=== PATIENT | female | born 1995 | race Caucasian/White ===

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

== ENCOUNTER 2017-03-22 15:07 | Emergency (ER) | payer OTHER, MEDICAID ==
[2017-03-22 15:16] VITALS: BP 130/90
--- NOTE | 2017-03-22 15:35 | ED Physician Documentation ---
PD HPI LOWER EXT INJURY - Stated complaint Stated Complaint: LT ANKLE INJ - Chief complaint Chief Complaint: Ext Problem - History of Present Illness PD HPI LOW EXT INJURY LOCATION: Left, Ankle (inversion at work today. No other injuries. Can walk.) Review of Systems Constitutional: reports: Reviewed and negative Throat: reports: Reviewed and negative Cardiac: reports: Reviewed and negative PD PAST MEDICAL HISTORY - Past Medical History Cardiovascular: None Respiratory: None, Other Endocrine/Autoimmune: None GI: None : None HEENT: None Psych: None Musculoskeletal: None Derm: None - Past Surgical History Past Surgical History: No HEENT: Tonsil/Adenoidectomy - Present Medications Home Medications: Ambulatory Orders Medication Instructions Recorded Confirmed Bcp 03/22/17 Sertraline HCl [Zoloft] 0 mg PO DAILY 03/22/17 03/22/17 - Allergies Allergies/Adverse Reactions: Allergies Allergy/AdvReac Type Severity Reaction Status Date / Time No Known Drug Allergies Allergy Verified 10/06/16 12:18 - Social History Does the pt smoke?: No Smoking Status: Never smoker Does the pt drink ETOH?: No Does the pt have substance abuse?: No - Immunizations Immunizations are current?: Yes - POLST Patient has POLST: No PD ED PE NORMAL - Vitals Vital signs reviewed: Yes - General General: Alert and oriented X 3, No acute distress - Extremities Extremities: Other (Mild tenderness over the lateral malleolus and ATFL of the left ankle without proximal fibular or foot tenderness. No deformity or significant swelling.) - Neuro Neuro: Alert and oriented X 3, Normal speech - Psych Psych: Normal mood, Normal affect Results - Vitals Vitals: Vital Signs - 24 hr 03/22/17 15:15 Temperature 36.1 C L Heart Rate 99 Respiratory 18 Rate Blood Pressure 130/90 H O2 Saturation 100 Oxygen O2 Source Room air - Rads (name of study) 3v L ankle Radiology: EMP read contemporaneously (no frx) Departure - Departure Disposition: 01 Home, Self Care Clinical Impression: Left ankle sprain Qualifiers: Encounter type: initial encounter Involved ligament of ankle: anterior talofibular ligament Qualified Code(s): S93.492A - Sprain of other ligament of left ankle, initial encounter Condition: Good Record reviewed to determine appropriate education?: Yes Instructions: ED Sprain Ankle W X Ray Comments: Ibuprofen as needed for pain. Follow-up with your doctor in 1 week if not improved. Return if worse. Your blood pressure was elevated today on check into the emergency department. This does not mean that you have hypertension, it is a common phenomenon to come to the emergency department and have elevated blood pressure. I recommend that you see your primary care physician within the week to have it rechecked when you are feeling better. Forms: Activity restrictions Discharge Date/Time: 03/22/17 15:55
--- NOTE | 2017-03-22 15:46 | XRAY Preliminary Report ---
Exam: XR ANKLE 3 VIEW LT IMPRESSION: No fracture. [facility] SITE ID: [id number]
--- NOTE | 2017-03-22 15:46 | XRAY Report ---
EXAM: LEFT ANKLE RADIOGRAPHY EXAM DATE: 03/22/2017 03:31 PM. CLINICAL HISTORY: Injury. Swelling. COMPARISON: None. TECHNIQUE: 3 views. FINDINGS: Bones: Normal. No fractures or bone lesions. Joints: Normal. No effusion. No subluxations. The ankle mortise is normally aligned. Soft Tissues: There is lateral ankle soft tissue swelling. IMPRESSION: No fracture. [facility] Referring Provider Line: [phone] SITE ID: [id number]
== END 2017-03-22 15:55 | disposition home or self-care (01) ==
LOC: ED 15:07
DX: S93.492A Sprain of other ligament of left ankle, initial encounter (principal); X50.1XXA Overexertion from prolonged static or awkward postures, initial encounter; Y92.89 Other specified places as the place of occurrence of the external cause; Y99.0 Civilian activity done for income or pay; R03.0 Elevated blood-pressure reading, without diagnosis of hypertension
CPT/HCPCS: 99282; 99283

== ENCOUNTER 2017-07-10 09:33 | Outpatient (CLI) | payer MEDICAID | END 2017-07-10 09:34 | disposition home or self-care (01) | LOC: LAB.R 09:33 | PROVIDERS: ATTEND Registered Nurse | DX: N76.0 Acute vaginitis (principal) | CPT/HCPCS: 87491; 87591 ==

== ENCOUNTER 2017-09-10 10:20 | Emergency (ER) | payer MEDICAID ==
[2017-09-10] MEDS: ONDANSETRON ODT 4 MG TABLET TL STA (12:14)
[2017-09-10] MEDS: OXYMETAZOLINE NASAL SPRAY NAS STA (12:17)
[2017-09-10] MEDS: DEXAMETHASONE 10 MG/ML VIAL PO STA (12:17)
[2017-09-10 12:19] VITALS: BP 130/90
[2017-09-10] MEDS ORDERED: CHERRY SYRUP 10 ML UDC PO ONE (12:24)
--- NOTE | 2017-09-10 12:32 | ED Physician Documentation ---
History of Present Illness - Stated complaint Stated Complaint: THROAT TIGHT, DIZZY, EAR PX, NAUSEA, CONGESTED - Chief complaint Chief Complaint: General - Additonal information Additional information: hx from pt to ER with several concerns 1) new rx gabapentin for nerve pain and she feels dizzy and it is not helping the nerve pain 2) s/p tonsiellectomy (in the past) but exposed to strep and has swollen nodes and pain with swallowing and plugged ears and nausea LMP not but could be Review of Systems Constitutional: denies: Fever, Chills Ears: reports: Ear pain Throat: reports: Sore throat GI: reports: Nausea : denies: Now EGA Immunocompromised: denies: Immunocompromised PD PAST MEDICAL HISTORY - Past Medical History Past Medical History: Yes Cardiovascular: None Respiratory: None, Other Endocrine/Autoimmune: None GI: None : None HEENT: None Psych: None Musculoskeletal: Other Derm: None Other Past Medical History: Slipped disk. - Past Surgical History Past Surgical History: Yes HEENT: Tonsil/Adenoidectomy - Present Medications Home Medications: Ambulatory Orders Medication Instructions Recorded Confirmed FLUoxetine [PROzac] 09/10/17 Gabapentin 09/10/17 Ondansetron Odt [Zofran] 4 mg TL Q6H PRN #10 tablet 09/10/17 Oxymetazoline HCl [Afrin] 2 spray NS BID PRN #1 bottle 09/10/17 raNITIdine [Zantac] 150 mg PO BID #60 tablet 09/10/17 - Allergies Allergies/Adverse Reactions: Allergies Allergy/AdvReac Type Severity Reaction Status Date / Time No Known Drug Allergies Allergy Verified 09/10/17 10:29 - Social History Does the pt smoke?: No Smoking Status: Never smoker Does the pt drink ETOH?: No Does the pt have substance abuse?: No - Immunizations Immunizations are current?: Yes - POLST Patient has POLST: No PD ED PE NORMAL - Vitals Vital signs reviewed: Yes - General General: Alert and oriented X 3 - HEENT HEENT: PERRL, Ears normal, Moist mucous membranes. No: Pharynx benign (no tonsils, pharyngeal erythema and some PND) - Neck Neck: No: No adenopathy (anterior sup cervical adenopathy) - Cardiac Cardiac: RRR - Respiratory Respiratory: No respiratory distress, Clear bilaterally - Derm Derm: Normal color - Neuro Neuro: Alert and oriented X 3 Results - Vitals Vitals: Vital Signs - 24 hr 09/10/17 09/10/17 10:27 12:19 Temperature 36.5 C 36.7 C Heart Rate 92 90 Respiratory 20 16 Rate Blood Pressure 134/91 H 130/90 H O2 Saturation 97 99 Oxygen O2 Source Room air - Labs Labs: Laboratory Tests 09/10/17 09/10/17 12:06 12:06 Ur Specific [place] 1.025 Urine HCG, Qual NEGATIVE Group A Strep Rapid Negative PD MEDICAL DECISION MAKING - Sepsis Event Vital Signs: Vital Signs - 24 hr 09/10/17 09/10/17 10:27 12:19 Temperature 36.5 C 36.7 C Heart Rate 92 90 Respiratory 20 16 Rate Blood Pressure 134/91 H 130/90 H O2 Saturation 97 99 Oxygen O2 Source Room air Departure - Departure Disposition: 01 Home, Self Care Clinical Impression: Pharyngitis Qualifiers: Pharyngitis/tonsillitis etiology: unspecified etiology Qualified Code(s): J02.9 - Acute pharyngitis, unspecified Gastritis Qualifiers: Gastritis type: unspecified gastritis Chronicity: acute Gastritis bleeding: without bleeding Qualified Code(s): K29.00 - Acute gastritis without bleeding Condition: Good Instructions: ED PUD Vs Gastritis, ED Pharyngitis Viral Report Pending Follow-Up: Stacey Zhu MD [Primary Care Provider] - Prescriptions: Ondansetron Odt [Zofran] 4 mg TL Q6H PRN #10 tablet PRN Reason: Nausea / Vomiting Oxymetazoline HCl [Afrin] 2 spray NS BID PRN #1 bottle PRN Reason: nasal sinus ear congestion raNITIdine [Zantac] 150 mg PO BID #60 tablet Comments: The test was negative The strep test was negative. An official throat culture will also be run and you will be called if it is positive and antibiotics are needed. The dizziness could be a side effect of your new gabapentin - if you do not feel like the gabapentin is helping and it is causing side effects, I suggest you stop that medication. Taper off the medication - if possible cut the dose in half for a week, then take that half dose every other day for a week, then may stop The dose of steroids given in the ER will decrease the swelling in your throat and relieve the pressure in your ears - it will take several hours to start working You can also use afrin nose spray twice a day for three days. I prescribed zofran for your nausea and zantac for the stomach pain - you could have gastritis or even an ulcer due to your recent stress. Please follow up with your PMD for a recheck. And return if worse
[2017-09-10 12:40] LABS: HCG UR QUAL NEGATIVE
== END 2017-09-10 13:12 | disposition home or self-care (01) ==
LOC: ED 10:20
DX: J02.9 Acute pharyngitis, unspecified (principal); K29.00 Acute gastritis without bleeding; R42 Dizziness and giddiness
CPT/HCPCS: 81025; 87070; 87430; 99283; A9270; Q0162

== ENCOUNTER 2017-09-14 11:31 | Emergency (ER) | payer MEDICAID ==
[2017-09-14] MEDS ORDERED: LIDOCAINE VISCOUS 2% 15 ML UDC MM STA (13:18)
[2017-09-14] MEDS ORDERED: PHENobarb/HYOSCY/ATROPINE/SCOP 5 ML UDC PO STA (13:18)
[2017-09-14] MEDS ORDERED: MAG HYDROX/AL HYDROX/SIMETH 30 ML UDC PO STA (13:18)
--- NOTE | 2017-09-14 13:21 | ED Physician Documentation ---
History of Present Illness - Stated complaint Stated Complaint: DIFF BREATHING - Chief complaint Chief Complaint: Resp - History obtained from History obtained from: Patient - Additonal information Additional information: The patient is a 22-year-old female who presents with a constellation of symptoms, including shortness of breath and chest tightness with inspiration. She has had nausea with one episode of vomiting this morning. She complains of sore throat, intermittent low-grade fever, and generalized achiness. She denies cough or headache. She denies dysuria. She just finished her last menstrual period. She was seen in the emergency department here 4 days ago with similar symptoms. A strep screen at that time was negative and subsequent throat culture is also negative. She was diagnosed with viral pharyngitis and was given a dose of oral dexamethasone. In addition she was diagnosed with gastritis versus peptic ulcer disease, and was prescribed ranitidine and Zofran. There was some thought that her symptoms might be related to starting gabapentin a few days prior to the onset of her symptoms. She has discontinued gabapentin, but her symptoms have continued. She states her brother was recently diagnosed with mononucleosis and strep throat. Review of Systems Constitutional: reports: Fever (intermittent, low-grade) Ears: denies: Ear pain Nose: denies: Congestion Throat: reports: Sore throat Cardiac: reports: Chest pain / pressure ("tightness" with inspiration.). denies : Palpitations Respiratory: reports: Dyspnea. denies: Cough GI: reports: Nausea, Vomiting. denies: Abdominal Pain, Diarrhea : reports: LMP (less than one week ago.). denies: Dysuria Skin: denies: Rash Musculoskeletal: denies: Back pain Neurologic: denies: Headache PD PAST MEDICAL HISTORY - Past Medical History Cardiovascular: None Respiratory: None, Other Endocrine/Autoimmune: None GI: None : None HEENT: None Psych: None Musculoskeletal: Other Derm: None - Past Surgical History Past Surgical History: Yes HEENT: Tonsil/Adenoidectomy - Present Medications Home Medications: Ambulatory Orders Medication Instructions Recorded Confirmed FLUoxetine [PROzac] 09/10/17 Ondansetron Odt [Zofran] 4 mg TL Q6H PRN #10 tablet 09/10/17 raNITIdine [Zantac] 150 mg PO BID #60 tablet 09/10/17 raNITIdine [Zantac] 150 mg PO BID #30 tablet 09/14/17 - Allergies Allergies/Adverse Reactions: Allergies Allergy/AdvReac Type Severity Reaction Status Date / Time gabapentin AdvReac Edema Verified 09/14/17 11:39 - Social History Does the pt smoke?: No Smoking Status: Never smoker Does the pt drink ETOH?: No Does the pt have substance abuse?: No - Immunizations Immunizations are current?: Yes - POLST Patient has POLST: No PD ED PE NORMAL - Vitals Vital signs reviewed: Yes (normal) - General General: Alert and oriented X 3, Well developed/nourished, Other (Appears anxious.) - HEENT HEENT: Atraumatic, EOMI, Ears normal, Pharynx benign - Neck Neck: No adenopathy, No JVD - Cardiac Cardiac: RRR, No murmur - Respiratory Respiratory: No respiratory distress, Clear bilaterally - Abdomen Abdomen: Soft, Other (Mild epigastric tenderness, without rebound or guarding.) - Back Back: No CVA TTP - Derm Derm: No rash - Extremities Extremities: No edema, No calf tenderness / cord - Neuro Neuro: Alert and oriented X 3, No motor deficit, Normal speech Results - Vitals Vitals: Oxygen O2 Source Room air - Labs Labs: Laboratory Tests 09/14/17 09/14/17 09/14/17 13:44 13:44 13:44 WBC 8.9 RBC 4.79 Hgb 14.1 Hct 42.2 MCV 88.0 MCH 29.5 MCHC 33.5 RDW 13.4 Plt Count 236 MPV 9.0 Neut # (Auto) 7.7 H Lymph # (Auto) 0.9 L Howell # (Auto) 0.3 Eos # (Auto) 0.0 Baso # (Auto) 0.0 Absolute Nucleated RBC 0.00 Nucleated RBC % 0.0 Sodium 135 Potassium 3.8 Chloride 103 Carbon Dioxide 23 Anion Gap 9.0 BUN 8 Creatinine 0.6 Estimated GFR (MDRD) 127 Glucose 115 H Calcium 9.4 Total Bilirubin 1.7 H AST 14 ALT 13 Alkaline Phosphatase 77 Total Protein 7.9 Albumin 4.5 Globulin 3.4 Albumin/Globulin Ratio 1.3 Lipase 25 Infectious Howell Assay NEGATIVE - Rads (name of study) CXR Radiology: Prelim report reviewed, EMP read contemporaneously, See rad report ( Normal 2 view chest radiography.) PD MEDICAL DECISION MAKING - ED course Complexity details: reviewed old records, reviewed results, re-evaluated patient , considered differential, d/w patient, d/w family ED course: The patient's presentation is most consistent with gastroesophageal reflux disease versus gastritis. There is also a large anxiety component. CBC and chemistry panel are unremarkable. Chest x-ray reveals no radiographic abnormality. Monospot is negative. I doubt pulmonary embolus. Treatment in the emergency department included administration of GI cocktail. This improved her epigastric discomfort, but she continued to complain of nausea. An IV was established and she was administered normal saline 1 L IV and Phenergan 12.5 mg IV. Because of continued anxiety, lorazepam 0.5 mg is administered IV. Her symptoms significantly improved with the above treatment. She had no respiratory symptoms during her entire duration in the emergency department. Repeat examination reveals a benign abdomen. I discussed with her and her mother the diagnosis, symptomatic treatment and outpatient follow-up, as well as potentially worrisome signs or symptoms that should prompt reevaluation in the emergency department. She is being discharged with prescription for ranitidine. - Sepsis Event Vital Signs: Oxygen O2 Source Room air Departure - Departure Disposition: 01 Home, Self Care Clinical Impression: GERD (gastroesophageal reflux disease) Qualifiers: Esophagitis presence: esophagitis presence not specified Qualified Code(s): K21.9 - Gastro-esophageal reflux disease without esophagitis Condition: Stable Instructions: ED GERD Follow-Up: Stacey Zhu MD [Primary Care Provider] - Prescriptions: raNITIdine [Zantac] 150 mg PO BID #30 tablet Comments: Drink plenty of fluids. Take ranitidine twice daily as prescribed. He can use Tylenol if needed for fever or discomfort. Follow up with your primary physician within 1-2 weeks. Call to schedule an appointment. Return to the emergency department if you develop increasing pain, increasing difficulty breathing, or otherwise worsening symptoms. Discharge Date/Time: 09/14/17 15:45
[2017-09-14] MEDS ORDERED: PROMETHAZINE INJ 12.5 MG in SODIUM CHLORIDE 0.9% 50 ML IV STA (13:40)
[2017-09-14] MEDS ORDERED: SODIUM CHLORIDE 0.9% 1,000 ML IV ONE (13:40)
[2017-09-14 13:50] LABS: BASOPHILS % (AUTO) 0.2 %; EOSINOPHILS % (AUTO) 0.3 %; HGB - HEMOGLOBIN 14.1 g/dL (12.0-16.0); LYMPHOCYTES # (AUTO) 0.9 10^3/uL (1.5-3.5); LYMPHOCYTES % (AUTO) 10.1 %; MEAN CORPUSCULAR HEMOGLOBIN 29.5 pg (27.0-31.0); MEAN CORPUSCULAR HGB CONC 33.5 g/dL (32.0-36.0); MONOCYTES # (AUTO) 0.3 10^3/uL (0.0-1.0); MONOCYTES % (AUTO) 2.8 %; NEUTROPHILS # (AUTO) 7.7 10^3/uL (1.5-6.6); NEUTROPHILS % (AUTO) 86.6 %; PLT - PLATELET COUNT 236 10^3/uL (130-450); RED BLOOD COUNT 4.79 10^6/uL (4.20-5.40); RED CELL DISTRIBUTION WIDTH 13.4 % (12.0-15.0); WHITE BLOOD COUNT 8.9 x10^3/uL (4.8-10.8)
[2017-09-14] MEDS ORDERED: LORazepam 2 MG/ML VIAL IVP STA (13:58)
[2017-09-14 14:11] LABS: ALBUMIN 4.5 g/dL (3.2-5.5); ALBUMIN/GLOBULIN RATIO 1.3 (1.0-2.2); BILIRUBIN,TOTAL 1.7 mg/dL (0.2-1.0); CALCIUM 9.4 mg/dL (8.5-10.3); CREATININE 0.6 mg/dL (0.4-1.0); TOTAL PROTEIN 7.9 g/dL (6.7-8.2)
--- NOTE | 2017-09-14 15:13 | XRAY Report ---
Procedure Date: 09/14/2017 Accession Number: [id number] / [id number] Procedure: XR - Chest 2 View X-Ray CPT Code: 30267 FULL RESULT: EXAM: CHEST RADIOGRAPHY EXAM DATE: 09/14/2017 02:54 PM. CLINICAL HISTORY: Dyspnea and wheezing for 3 days. COMPARISON: None. TECHNIQUE: 2 views. FINDINGS: Lungs/Pleura: No focal opacities evident. No pleural effusion. No pneumothorax. Normal volumes. Mediastinum: Heart and mediastinal contours are unremarkable. Other: None. IMPRESSION: Normal 2-view chest radiography. [facility]
[2017-09-14 15:47] VITALS: BP 119/64
== END 2017-09-14 15:45 | disposition home or self-care (01) ==
LOC: ED 11:31
DX: K21.9 Gastro-esophageal reflux disease without esophagitis (principal)
CPT/HCPCS: 36415; 71046; 80053; 83690; 85025; 86308; 96361; 96365; 96375; 99283; A9270; J2060; J7040

== ENCOUNTER 2018-03-04 08:00 | Outpatient (CLI) | payer MEDICAID ==
[2018-03-05 13:21] LABS: HEPATITIS C ANTIBODY NON-REACTIVE (NON-REACTIVE)
[2018-03-05 13:37] LABS: HIV AG/AB 4TH GEN NON-REACTIVE (NON-REACTIVE)
[2018-03-06 12:25] LABS: HSV 1 IGG TYPE SPECIFIC AB <0.90 index; HSV 2 IGG TYPE SPECIFIC AB 1.41 index
== END 2018-03-04 23:59 | disposition home or self-care (01) ==
LOC: LAB.N 08:00
PROVIDERS: ATTEND Registered Nurse
DX: Z11.3 Encounter for screening for infections with a predominantly sexual mode of transmission (principal)
CPT/HCPCS: 36415; 81599; 86592; 86695; 86696; 86803; 87389

== ENCOUNTER 2018-06-27 10:41 | Outpatient (CLI) | payer MEDICAID | END 2018-06-27 10:42 | disposition critical access hospital (66) | LOC: EMS 10:41 | PROVIDERS: ATTEND Surgery | DX: R55 Syncope and collapse (principal); S09.90XA Unspecified injury of head, initial encounter; S01.511A Laceration without foreign body of lip, initial encounter; M25.531 Pain in right wrist; W18.39XA Other fall on same level, initial encounter; Y92.59 Other trade areas as the place of occurrence of the external cause | CPT/HCPCS: A0425; A0427; A0999 ==

== ENCOUNTER 2018-06-27 11:02 | Emergency (ER) | payer MEDICAID ==
[2018-06-27 11:52] LABS: BILIRUBIN,URINE NEGATIVE (NEGATIVE); GLUCOSE, URINE (UA) NEGATIVE (NEGATIVE); KETONES,URINE (UA) NEGATIVE (NEGATIVE); LEUKOCYTE ESTERASE, URINE NEGATIVE (NEGATIVE); NITRITE,URINE NEGATIVE (NEGATIVE); OCCULT BLOOD,URINE NEGATIVE (NEGATIVE); PH,URINE 8.5 PH (5.0-7.5); PROTEIN,URINE NEGATIVE (NEGATIVE); UROBILINOGEN,URINE 0.2 (NORMAL) E.U./dL (NORMAL)
[2018-06-27 12:00] LABS: BASOPHILS % (AUTO) 0.2 %; EOSINOPHILS # (AUTO) 0.1 10^3/uL (0.0-0.7); EOSINOPHILS % (AUTO) 1.4 %; HGB - HEMOGLOBIN 13.1 g/dL (12.0-16.0); LYMPHOCYTES # (AUTO) 1.1 10^3/uL (1.5-3.5); MEAN CORPUSCULAR HEMOGLOBIN 29.1 pg (27.0-31.0); MEAN CORPUSCULAR HGB CONC 33.1 g/dL (32.0-36.0); MEAN CORPUSCULAR VOLUME 87.9 fL (81.0-99.0); MEAN PLATELET VOLUME 9.5 fL (7.9-10.8); MONOCYTES # (AUTO) 0.4 10^3/uL (0.0-1.0); MONOCYTES % (AUTO) 5.1 %; NEUTROPHILS # (AUTO) 6.1 10^3/uL (1.5-6.6); NEUTROPHILS % (AUTO) 79.3 %; PLT - PLATELET COUNT 209 10^3/uL (130-450); RED BLOOD COUNT 4.51 10^6/uL (4.20-5.40); RED CELL DISTRIBUTION WIDTH 13.7 % (12.0-15.0); WHITE BLOOD COUNT 7.6 x10^3/uL (4.8-10.8)
[2018-06-27 12:05] LABS: CLARITY,URINE CLEAR (CLEAR); HCG UR QUAL NEGATIVE
[2018-06-27 12:15] LABS: ALBUMIN/GLOBULIN RATIO 1.5 (1.0-2.2); BILIRUBIN,TOTAL 0.9 mg/dL (0.2-1.0); CALCIUM 9.1 mg/dL (8.5-10.3); CREATININE 0.5 mg/dL (0.4-1.0); TOTAL PROTEIN 6.7 g/dL (6.7-8.2)
[2018-06-27] MEDS ORDERED: ACETAMINOPHEN 325 MG TABLET PO STA (13:50)
--- NOTE | 2018-06-27 13:52 | ED Physician Documentation ---
History of Present Illness - Stated complaint Stated Complaint: syncopal episode/ABD PX - Chief complaint Chief Complaint: General - History obtained from History obtained from: Patient, Family - History of Present Illness Timing: Today Pain level max: 6 Pain level now: 5 - Additonal information Additional information: 23 year old female states that she was feeling, hunger pains at work, drank soda which made her stomach hurt worse, she felt lightheaded and dizzy, then passed out and awoke on the floor. Struck her head on something, she is unsure what. Now has a headache. No nausea or vomiting. No neck or back pain. Denies any . Has not passed out before. No changes to her medications. No re cent travel. No chest pain or shortness of breath. Review of Systems Constitutional: denies: Fever, Chills Ears: denies: Ear pain Nose: denies: Rhinorrhea / runny nose, Congestion Respiratory: denies: Dyspnea GI: denies: Nausea, Vomiting, Diarrhea Skin: denies: Rash Musculoskeletal: denies: Neck pain, Back pain Neurologic: denies: Headache PD PAST MEDICAL HISTORY - Past Medical History Past Medical History: Yes Cardiovascular: None Respiratory: None, Other Endocrine/Autoimmune: None GI: None : None HEENT: None Psych: None Musculoskeletal: Other Derm: None - Past Surgical History Past Surgical History: Yes HEENT: Tonsil/Adenoidectomy - Present Medications Home Medications: Ambulatory Orders Medication Instructions Recorded Confirmed FLUoxetine [PROzac] 09/10/17 Ondansetron Odt [Zofran] 4 mg TL Q6H PRN #10 tablet 09/10/17 raNITIdine [Zantac] 150 mg PO BID #60 tablet 09/10/17 raNITIdine [Zantac] 150 mg PO BID #30 tablet 09/14/17 Omeprazole 20 mg PO DAILY #30 tablet. 06/27/18 - Allergies Allergies/Adverse Reactions: Allergies Allergy/AdvReac Type Severity Reaction Status Date / Time gabapentin AdvReac Edema Verified 06/27/18 11:09 - Social History Does the pt smoke?: No Smoking Status: Former smoker Does the pt drink ETOH?: Yes Does the pt have substance abuse?: No - Immunizations Immunizations are current?: Yes - POLST Patient has POLST: No PD ED PE NORMAL - Vitals Vital signs reviewed: Yes - General General: Alert and oriented X 3, No acute distress, Well developed/nourished - HEENT HEENT: PERRL, EOMI, Moist mucous membranes, Pharynx benign, Other (Small forehead contusion. No palpable skull fractures.) - Neck Neck: Supple, no meningeal sign, No bony TTP - Cardiac Cardiac: RRR, Strong equal pulses - Respiratory Respiratory: No respiratory distress, Clear bilaterally - Abdomen Abdomen: Soft, Non tender, Non distended - Back Back: No spinal TTP - Derm Derm: Warm and dry - Extremities Extremities: No deformity, No tenderness to palpate, Normal ROM s pain - Neuro Neuro: Alert and oriented X 3, porter head 2-12 intact, No motor deficit, No sensory deficit, Normal speech Eye Opening: Spontaneous Motor: Obeys Commands Verbal: Oriented GCS Score: 15 - Psych Psych: Normal mood, Normal affect Results - Vitals Vitals: Vital Signs - 24 hr 06/27/18 06/27/18 06/27/18 11:09 12:27 14:50 Temperature 36.0 C L Heart Rate 88 73 83 Respiratory 14 14 19 Rate Blood Pressure 115/87 H 123/69 123/77 O2 Saturation 99 97 99 Oxygen O2 Source Room air - EKG (time done) 1323 Rate: Rate (enter#) (79) Rhythm: NSR [place]ane: Normal Intervals: Normal MO QRS: Normal Ischemia: Normal ST segments - Labs Labs: Laboratory Tests 06/27/18 06/27/18 06/27/18 11:14 11:55 11:55 WBC 7.6 RBC 4.51 Hgb 13.1 Hct 39.6 MCV 87.9 MCH 29.1 MCHC 33.1 RDW 13.7 Plt Count 209 MPV 9.5 Neut # (Auto) 6.1 Lymph # (Auto) 1.1 L [place] # (Auto) 0.4 Eos # (Auto) 0.1 Baso # (Auto) 0.0 Absolute Nucleated RBC 0.00 Nucleated RBC % 0.0 Sodium 141 Potassium 3.8 Chloride 103 Carbon Dioxide 24 Anion Gap 14.0 H BUN 8 Creatinine 0.5 Estimated GFR (MDRD) 156 Glucose 103 H Calcium 9.1 Total Bilirubin 0.9 AST 22 ALT 15 Alkaline Phosphatase 63 Total Protein 6.7 Albumin 4.0 Globulin 2.7 Albumin/Globulin Ratio 1.5 Lipase 26 Urine Color YELLOW Urine Clarity CLEAR Urine pH 8.5 H Ur Specific [place] 1.010 Urine Protein NEGATIVE Urine Glucose (UA) NEGATIVE Urine Ketones NEGATIVE Urine Occult Blood NEGATIVE Urine Nitrite NEGATIVE Urine Bilirubin NEGATIVE Urine Urobilinogen 0.2 (NORMAL) Ur Leukocyte Esterase NEGATIVE Ur Microscopic Review NOT INDICATED Urine Culture Comments NOT INDICATED Urine HCG, Qual NEGATIVE - Rads (name of study) Head CT Radiology: Prelim report reviewed, EMP read contemporaneously, See rad report (Mild right frontal scalp soft tissue contusion. No acute or focal intracranial abnormality seen. ) PD MEDICAL DECISION MAKING - ED course Complexity details: reviewed results, re-evaluated patient, considered differential, d/w patient ED course: 23-year-old female with a history of gastritis. Appears to have had a vasovagal syncopal episode today. No arrhythmias on telemetry. No acute lab abnormaliti es. Given IV fluids. Head CT is negative. Will add a PPI to her home regimen. We will follow-up with her doctor for further care. Patient and family counseled regarding signs and symptoms for which I believe and urgent re- evaluation would be necessary. Patient with good understanding of and agreement to plan and is comfortable going home at this time This document was made in part using voice recognition software. While efforts are made to proofread this document, sound alike and grammatical errors may occur. Departure - Departure Disposition: 01 Home, Self Care Clinical Impression: Vasovagal syncope Gastritis Qualifiers: Gastritis type: unspecified gastritis Chronicity: acute Gastritis bleeding: without bleeding Qualified Code(s): K29.00 - Acute gastritis without bleeding Head injury Qualifiers: Encounter type: initial encounter Qualified Code(s): S09.90XA - Unspecified injury of head, initial encounter Condition: Good Instructions: ED Head Injury Closed, ED Syncope Vasovagal, ED PUD Vs Gastritis Follow-Up: Stacey Zhu MD [Primary Care Provider] - Within 1 week Prescriptions: Omeprazole 20 mg PO DAILY #30 tablet. Comments: You should eat a bland diet, avoiding fried and spicy foods. Avoid caffeine and alcohol as well. Also avoid things such as Motrin and Aleve. Tylenol is okay. Drink plenty of fluids, especially water. Return if you worsen. Forms: Activity restrictions Discharge Date/Time: 06/27/18 15:12
[2018-06-27] MEDS ORDERED: SODIUM CHLORIDE 0.9% 1,000 ML IV ONE (13:55)
[2018-06-27 14:51] VITALS: BP 123/77
--- NOTE | 2018-06-27 15:20 | CT Report ---
Reason: syncope, head vs unknown object Procedure Date: 06/27/2018 Accession Number: [id number] / [id number] Procedure: CT - HEAD WO CPT Code: FULL RESULT: EXAM: CT HEAD EXAM DATE: 06/27/2018 02:29 PM. CLINICAL HISTORY: Syncope, head vs unknown object. Fell, hit head. COMPARISON: None. TECHNIQUE: Multiaxial CT images were obtained from the foramen magnum to the vertex. Reformats: Sagittal and coronal. IV contrast: None. In accordance with CT protocol optimization, one or more of the following dose reduction techniques were utilized for this exam: automated exposure control, adjustment of mA and/or KV based on patient size, or use of iterative reconstructive technique. FINDINGS: Parenchyma: No mass-effect or midline shift. No evidence for edema. No intracranial hemorrhage. Extraaxial Spaces: Normal for age. No subdural or epidural collections identified. Ventricles: Normal in size and position. Sinuses and Orbits: Imaged paranasal sinuses, orbits, and mastoids show no significant abnormality. Bones: No evidence of fracture or calvarial defect. Other: Mild right frontal scalp soft tissue contusion. IMPRESSION: Mild right frontal scalp soft tissue contusion. No acute or focal intracranial abnormality seen. RADIA
== END 2018-06-27 15:12 | disposition home or self-care (01) ==
LOC: EDUNIT# → ED 11:02
DX: R55 Syncope and collapse (principal); K29.00 Acute gastritis without bleeding; S00.83XA Contusion of other part of head, initial encounter; W22.01XA Walked into wall, initial encounter; Y92.89 Other specified places as the place of occurrence of the external cause; Y99.0 Civilian activity done for income or pay; Z87.891 Personal history of nicotine dependence
CPT/HCPCS: 36415; 70450; 80053; 81003; 81025; 83690; 85025; 93005; 96360; 99284; A9270; 81001; 87086

== ENCOUNTER 2019-03-05 15:34 | Emergency (ER) | payer MEDICAID ==
[2019-03-05 15:55] LABS: RAPID STREP SCREEN Negative (Negative)
--- NOTE | 2019-03-05 16:45 | ED Physician Documentation ---
PD HPI URI - Stated complaint Stated Complaint: SORE THROAT - Chief complaint Chief Complaint: Heent - History obtained from History obtained from: Patient - History of Present Illness Timing - onset: Today Timing duration: Days (1) Timing details: Abrupt onset, Still present Associated symptoms: Sore throat. No: Fever, Swollen nodes Contributing factors: Sick contact (friend with strep and she is concerned she has it as well.) Similar symptoms before: Has not had sx before Review of Systems Constitutional: denies: Fever, Chills, Myalgias Ears: denies: Ear pain Nose: reports: Congestion. denies: Rhinorrhea / runny nose Throat: reports: Sore throat Respiratory: denies: Cough PD PAST MEDICAL HISTORY - Past Medical History Cardiovascular: None Respiratory: None, Other Endocrine/Autoimmune: None GI: None : None HEENT: None Psych: None Musculoskeletal: Other Derm: None - Past Surgical History Past Surgical History: Yes HEENT: Tonsil/Adenoidectomy - Present Medications Home Medications: Ambulatory Orders Medication Instructions Recorded Confirmed FLUoxetine [PROzac] 09/10/17 Ondansetron Odt [Zofran] 4 mg TL Q6H PRN #10 tablet 09/10/17 raNITIdine [Zantac] 150 mg PO BID #60 tablet 09/10/17 raNITIdine [Zantac] 150 mg PO BID #30 tablet 09/14/17 Omeprazole 20 mg PO DAILY #30 tablet. 06/27/18 - Allergies Allergies/Adverse Reactions: Allergies Allergy/AdvReac Type Severity Reaction Status Date / Time gabapentin AdvReac Edema Verified 06/27/18 11:09 - Social History Does the pt smoke?: No Smoking Status: Former smoker Does the pt drink ETOH?: Yes Does the pt have substance abuse?: No - Immunizations Immunizations are current?: Yes - POLST Patient has POLST: No PD ED PE NORMAL - Vitals Vital signs reviewed: Yes - General General: Alert and oriented X 3, No acute distress, Well developed/nourished - HEENT HEENT: Ears normal, Moist mucous membranes, Pharynx benign - Neck Neck: Supple, no meningeal sign, No adenopathy - Cardiac Cardiac: RRR, No murmur - Respiratory Respiratory: Clear bilaterally Results - Vitals Vitals: Oxygen O2 Source Room air - Labs Labs: Microbiology 03/05/19 15:42 Group A Strep Throat Culture - Preliminary Throat CULTURE IN PROGRESS. RESULTS TO FOLLOW. Laboratory Tests 03/05/19 15:42 Group A Strep Rapid Negative PD MEDICAL DECISION MAKING - ED course Complexity details: reviewed results, considered differential, d/w patient Departure - Departure Disposition: 01 Home, Self Care Clinical Impression: Acute pharyngitis Qualifiers: Pharyngitis/tonsillitis etiology: unspecified etiology Qualified Code(s): J02.9 - Acute pharyngitis, unspecified Condition: Stable Record reviewed to determine appropriate education?: Yes Instructions: ED Pharyngitis Viral Report Pending Follow-Up: Stacey Zhu MD [Primary Care Provider] - Comments: The rapid strep test is negative. Does not look like strep clinically. At this point we will presume a viral infection. Stay well-hydrated. Tylenol or ibuprofen or both if needed for pains. Recheck if it worsens significantly over the next few days, in particular staying isolated to the throat with fevers or swollen glands or exudate. We will do a culture on the throat and call you in a couple of days if it shows any bacterial growth. Discharge Date/Time: 03/05/19 17:07
[2019-03-05] MEDS ORDERED: ACETAMINOPHEN 325 MG TABLET PO STA (16:56)
[2019-03-05] MEDS ORDERED: DEXAMETHASONE 10 MG/ML VIAL PO STA (16:56)
[2019-03-05] MEDS ORDERED: CHERRY SYRUP 10 ML UDC PO ONE (16:56)
[2019-03-05 17:08] VITALS: BP 126/74
== END 2019-03-05 17:07 | disposition home or self-care (01) ==
LOC: ED 15:34
DX: J02.9 Acute pharyngitis, unspecified (principal); Z87.891 Personal history of nicotine dependence
CPT/HCPCS: 87070; 87430; 99283; A9270

== ENCOUNTER 2021-02-17 20:42 | Outpatient (CLI) | payer MEDICAID | END 2021-02-17 20:43 | disposition critical access hospital (66) | LOC: EMS 20:42 | DX: R56.9 Unspecified convulsions (principal) | CPT/HCPCS: A0425; A0427; A0999 ==

== ENCOUNTER 2021-02-17 21:08 | Emergency (ER) | payer MEDICAID ==
--- NOTE | 2021-02-17 21:04 | ED Physician Documentation ---
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 No: Fell Associated symptoms: Headache (mild and generalized), Nausea / vomiting (mild nausea, given 4mg Zofran by EMS en route). No: Dyspnea History of seizures: No: Known seizure disorder, Prior TBI Contributing factors: No: Changed meds, Head injury, EtOH withdrawal, Fever Similar symptoms before: Has not had sx before Recently seen: Not recently seen - Additional information Additional information: Patient is amnestic for event but she recalls situation leading to the event. She says she has been feeling malaise all day with generalized weakness. She took a shower tonight and felt lightheaded and dizzy. She got dressed, went into a room where her was eating and, as she handed him some sauce for his food, she became diaphoretic, had rapid palpitations, and then next remembers waking up on the ground with her s.o. above her calling 911. Patient estimates she was unconscious for a few minutes. EMS says s.o. helped patient to ground thus no fall or witnessed/obvious injury. EMS says s.o. describes a few seconds of patient's limbs being drawn towards center of body and a few minutes of confusion upon waking up , but back to baseline mental status within a few minutes. Patient denies h/o similar event. Denies heavy/regular alcohol use. She has had one dose of COVID vaccine (of two); she has two children at home who recently tested positive for COVID-19. Review of Systems Constitutional: reports: Fatigue. denies: Fever, Chills, Myalgias, Sweats Eyes: reports: Reviewed and negative Cardiac: reports: Reviewed and negative Respiratory: reports: Reviewed and negative GI: reports: Nausea (resolved en route with IV zofran given by medics) PD PAST MEDICAL HISTORY - Past Medical History Past Medical History: Yes Psych: Depression - Present Medications Home Medications: Ambulatory Orders Medication Instructions Recorded Confirmed FLUoxetine [PROzac] 09/10/17 Ondansetron Odt [Zofran] 4 mg TL Q6H PRN #10 tablet 09/10/17 raNITIdine [Zantac] 150 mg PO BID #60 tablet 09/10/17 raNITIdine [Zantac] 150 mg PO BID #30 tablet 09/14/17 Omeprazole 20 mg PO DAILY #30 tablet. 06/27/18 - Allergies Allergies/Adverse Reactions: Allergies Allergy/AdvReac Type Severity Reaction Status Date / Time gabapentin AdvReac Edema Verified 06/27/18 11:09 PD ED PE NORMAL - Vitals Vital signs reviewed: Yes - General General: Alert and oriented X 3, No acute distress, Well developed/nourished - HEENT HEENT: Atraumatic, PERRL, EOMI, Moist mucous membranes, Other (no tongue bite/echymosis) - Neck Neck: Supple, no meningeal sign, No bony TTP - Cardiac Cardiac: RRR, No murmur - Respiratory Respiratory: No respiratory distress, Clear bilaterally - Abdomen Abdomen: Soft, Non tender - Derm Derm: Normal color, Warm and dry - Neuro Neuro: Alert and oriented X 3, wax room supervisor 2-12 intact, No motor deficit, No sensory deficit, Normal speech Eye Opening: Spontaneous Motor: Obeys Commands Verbal: Oriented GCS Score: 15 Results - Vitals Vitals: Vital Signs - 24 hr 02/17/21 02/17/21 21:12 23:13 Temperature 36.9 C 36.9 C Heart Rate 77 77 Respiratory 15 15 Rate Blood Pressure 132/72 H 132/72 H O2 Saturation 99 99 Oxygen O2 Source Room air - Labs Labs: Laboratory Tests 02/17/21 02/17/21 02/17/21 21:25 22:00 22:00 WBC 8.9 RBC 4.28 Hgb 12.0 Hct 37.2 MCV 86.9 MCH 28.0 MCHC 32.3 RDW 13.3 Plt Count 203 MPV 11.4 H Neut # (Auto) 6.9 H Lymph # (Auto) 1.4 L [place] # (Auto) 0.4 Eos # (Auto) 0.1 Baso # (Auto) 0.0 Absolute Nucleated RBC 0.00 Nucleated RBC % 0.0 Sodium 137 Potassium 3.5 Chloride 104 Carbon Dioxide 23 Anion Gap 10.0 BUN 10 Creatinine 0.6 Estimated GFR (MDRD) 124 Glucose 114 H Calcium 8.0 L Total Bilirubin 0.5 AST 19 ALT 13 Alkaline Phosphatase 70 Total Protein 6.7 Albumin 3.9 Globulin 2.8 Albumin/Globulin Ratio 1.4 Lipase 34 Nasal Adenovirus (PCR) NOT DETECTED Nasal B. parapertussis DNA (PCR) NOT DETECTED Nasal Coronavir 229E PCR NOT DETECTED Nasal Coronavir HKU1 PCR NOT DETECTED Nasal Coronavir NL63 PCR NOT DETECTED Nasal Coronavir OC43 PCR NOT DETECTED Nasal Enterovir/Rhinovir PCR NOT DETECTED Nasal Influenza B PCR NOT DETECTED Nasal Influenza A PCR NOT DETECTED Nasal Parainfluen 1 PCR NOT DETECTED Nasal Parainfluen 2 PCR NOT DETECTED Nasal Parainfluen 3 PCR NOT DETECTED Nasal Parainfluen 4 PCR NOT DETECTED Nasal RSV (PCR) NOT DETECTED Nasal B.pertussis DNA PCR NOT DETECTED Nasal C.pneumoniae (PCR) NOT DETECTED Franco Human Metapneumo PCR NOT DETECTED Nasal M.pneumoniae (PCR) NOT DETECTED Nasal SARS-CoV-2 (PCR) DETECTED A - Rads (name of study) CTH Radiology: Prelim report reviewed, See rad report PD MEDICAL DECISION MAKING - ED course Complexity details: reviewed results, re-evaluated patient, considered differential, d/w patient ED course: presents after syncopal episode. There was reportedly possible seizure-like activity, although the description does not include rhythmic, coordinated jerking motions (description was arms emigdio inward towards midline), and post- episode confusion was limited to a few minutes which would be unusually brief for a post-ictal phase. I suspect seizure-like activity from low-flow state due to syncope, with the syncope most likely being multifactorial (not feeling well recently with decreased PO intake, and just got out of shower and suddenly felt worse; she describes a prodrome of diaphoresis and lightheadedness with palpitations). she is given one liter NS IV and has reassuring blood tests. She is found to be COVID-19 positive although she has no respiratory complaints nor findings. CTH performed due to consideration that seizure is still on differential diagnosis; the CTH does not demonstrate acute/concerning findings. Results reviewed with patient. She is comfortable with discharge home. I instructed her to follow up with PMD for revaluation and consideration of f urther testing Departure - Departure Disposition: 01 Home, Self Care Clinical Impression: COVID-19 Syncope Qualifiers: Syncope type: unspecified Qualified Code(s): R55 - Syncope and collapse Condition: Good Instructions: ED Fainting Unkn Cause Comments: You have tested positive for COVID-19. For the latest information regarding isolation (techniques and length of isolation) and other information related to COVID-19, please refer to the CDC website for the most up-to-date information. https://www.cdc.gov/coronavirus/2019-ncov/index.html The [facility] website is another resource for information regarding COVID-19 I do not think you had a seizure tonight, but, as we discussed, you should follow up with your primary care provider for reevaluation. Discharge Date/Time: 02/17/21 23:46
[2021-02-17 21:17] VITALS: BP 132/72
[2021-02-17] MEDS ORDERED: SODIUM CHLORIDE 0.9% 1,000 ML IV STA (21:20)
[2021-02-17] MEDS ORDERED: ACETAMINOPHEN 325 MG TABLET PO STA (21:29)
--- NOTE | 2021-02-17 21:58 | CT Report ---
PROCEDURE: HEAD WO INDICATIONS: syncope, possible new-onset seizure TECHNIQUE: Noncontrast 4.5 mm thick angled axial sections acquired from the foramen magnum to the vertex. For r adiation dose reduction, the following was used: automated exposure control, adjustment of mA and/or kV according to patient size. COMPARISON: None. FINDINGS: Image quality: Excellent. CSF spaces: Basal cisterns are patent. No extra-axial fluid collections. Ventricles are normal in size and shape. Brain: No midline shift. No intracranial masses or hemorrhage. Alvarez-white matter interface is norm al. Skull and face: Calvarium and visualized facial bones are intact, without suspicious lesions. Sinuses: Visualized sinuses and mastoids are clear. IMPRESSION: No acute intracranial abnormality. Reviewed by: Andrea Nichols MD on 02/17/2021 9:57 PM PST Approved by: Andrea Nichols MD on 02/17/2021 9:57 PM PST Station ID: [id number]
[2021-02-17 22:04] LABS: BASOPHILS % (AUTO) 0.2 %; EOSINOPHILS # (AUTO) 0.1 10^3/uL (0.0-0.7); EOSINOPHILS % (AUTO) 1.4 %; HCT - HEMATOCRIT 37.2 % (37.0-47.0); LYMPHOCYTES # (AUTO) 1.4 10^3/uL (1.5-3.5); LYMPHOCYTES % (AUTO) 15.9 %; MEAN CORPUSCULAR HGB CONC 32.3 g/dL (32.0-36.0); MEAN CORPUSCULAR VOLUME 86.9 fL (81.0-99.0); MEAN PLATELET VOLUME 11.4 fL (7.9-10.8); MONOCYTES # (AUTO) 0.4 10^3/uL (0.0-1.0); MONOCYTES % (AUTO) 4.1 %; NEUTROPHILS # (AUTO) 6.9 10^3/uL (1.5-6.6); NEUTROPHILS % (AUTO) 78.2 %; PLT - PLATELET COUNT 203 10^3/uL (130-450); RED BLOOD COUNT 4.28 10^6/uL (4.20-5.40); RED CELL DISTRIBUTION WIDTH 13.3 % (12.0-15.0); WHITE BLOOD COUNT 8.9 x10^3/uL (4.8-10.8)
[2021-02-17 22:18] LABS: ALBUMIN 3.9 g/dL (3.2-5.5); ALBUMIN/GLOBULIN RATIO 1.4 (1.0-2.2); BILIRUBIN,TOTAL 0.5 mg/dL (0.2-1.0); CREATININE 0.6 mg/dL (0.4-1.0); POTASSIUM 3.5 mmol/L (3.5-5.0); TOTAL PROTEIN 6.7 g/dL (6.7-8.2)
[2021-02-17 22:35] LABS: B. PARAPERTUSSIS- RESP PCR PAN NOT DETECTED; B. PERTUSSIS- RESP PCR PANEL NOT DETECTED; C. PNEUMONIAE- RESP PCR PANEL NOT DETECTED; CORONAVIRUS 229E-RESP PCR NOT DETECTED; CORONAVIRUS HKU1-RESP PCR NOT DETECTED; CORONAVIRUS NL63-RESP PCR NOT DETECTED; CORONAVIRUS OC43-RESP PCR NOT DETECTED; HUMAN METAPNEUMOVIRUS NOT DETECTED; INFLUENZA A- RESP PCR PANEL NOT DETECTED; INFLUENZA B - RESP PCR PANEL NOT DETECTED; M. PNEUMONIAE- RESP PCR PANEL NOT DETECTED; PARAINFLUENZA VIRUS 1 NOT DETECTED; PARAINFLUENZA VIRUS 2 NOT DETECTED; PARAINFLUENZA VIRUS 3 NOT DETECTED; PARAINFLUENZA VIRUS 4 NOT DETECTED; RHINOVIRUS/ENTEROVIRUS NOT DETECTED; RSV- RESP PCR PANEL NOT DETECTED
[2021-02-17 22:38] LABS: SARS-CoV-2 -RESP PCR PANEL DETECTED
== END 2021-02-17 23:46 | disposition home or self-care (01) ==
LOC: EDUNIT# → ED 21:08
DX: U07.1 COVID-19 (principal); R55 Syncope and collapse
CPT/HCPCS: 0202U; 36415; 70450; 80053; 83690; 85025; 99284; A9270

== ENCOUNTER 2021-03-04 09:16 | Outpatient (CLI) | payer MEDICAID | END 2021-03-04 09:17 | disposition critical access hospital (66) | LOC: EMS 09:16 | DX: Z04.1 Encounter for examination and observation following transport accident (principal); R56.9 Unspecified convulsions; R51.9 Headache, unspecified | CPT/HCPCS: A0425; A0429; A0999 ==

== ENCOUNTER 2021-03-04 09:44 | Emergency (ER) | payer MEDICAID ==
[2021-03-04] MEDS ORDERED: IBUPROFEN 600 MG TABLET PO STA (10:53)
[2021-03-04] MEDS ORDERED: ACETAMINOPHEN 325 MG TABLET PO STA (10:53)
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
[2021-03-04 11:03] VITALS: BP 111/77
== END 2021-03-04 11:09 | disposition home or self-care (01) ==
LOC: ED 09:44
DX: R56.9 Unspecified convulsions (principal)
CPT/HCPCS: 99283; 99284; A9270

== ENCOUNTER 2022-01-06 18:23 | Outpatient (CLI) | payer MEDICAID | END 2022-01-06 18:24 | disposition critical access hospital (66) | LOC: EMS 18:23 | DX: R56.9 Unspecified convulsions (principal) | CPT/HCPCS: A0425; A0429; A0999 ==

== ENCOUNTER 2022-01-06 18:41 | Emergency (ER) | payer MEDICAID ==
[2022-01-06] MEDS ORDERED: ACETAMINOPHEN 325 MG TABLET PO STA (19:23)
--- NOTE | 2022-01-06 19:41 | ED Physician Documentation ---
PD HPI SEIZURE - Stated complaint Stated Complaint: SEIZURE - Chief complaint Chief Complaint: Neuro - History obtained from History obtained from: Patient, EMS - History of Present Illness Witnessed: Witnessed Number of seizures: Single Contributing factors: No: Off meds, Out of meds, Changed meds, Low blood sugar, Head injury, Substance abuse, EtOH withdrawal, Benzo withdrawal, Overdose, Fever, Sleep deprivation Recently seen: Clinic - Additional information Additional information: Patient is a 26-year-old female who presents to the emergency department after a witnessed seizure today. Full body, tonic-clonic. Lasted approximately 1 minute. She states her last seizure was in February. She states that they believed this was secondary to , so she terminated the . She states that she saw neurology at [facility] in [place]. She believes that she had an EEG and MRI. They were going to start antiepileptic drugs, but she was breast-feeding at that time. Review of Systems Ten Systems: 10 systems reviewed and negative Constitutional: denies: Fever, Myalgias Nose: denies: Rhinorrhea / runny nose, Congestion Throat: denies: Sore throat Respiratory: denies: Cough GI: denies: Abdominal Pain, Nausea, Vomiting, Diarrhea Skin: denies: Rash Musculoskeletal: denies: Neck pain, Back pain Neurologic: denies: Headache PD PAST MEDICAL HISTORY - Past Medical History Cardiovascular: None Respiratory: None, Other Neuro: None Endocrine/Autoimmune: None GI: None : None HEENT: None Psych: Depression Musculoskeletal: Other Derm: None - Past Surgical History Past Surgical History: Yes HEENT: Tonsil/Adenoidectomy - Present Medications Home Medications: Ambulatory Orders Medication Instructions Recorded Confirmed FLUoxetine [PROzac] 09/10/17 Ondansetron Odt [Zofran] 4 mg TL Q6H PRN #10 tablet 09/10/17 raNITIdine [Zantac] 150 mg PO BID #60 tablet 09/10/17 raNITIdine [Zantac] 150 mg PO BID #30 tablet 09/14/17 Omeprazole 20 mg PO DAILY #30 tablet. 06/27/18 lamoTRIgine [LaMICtal] 25 mg PO DAILY #30 tablet 01/06/22 - Allergies Allergies/Adverse Reactions: Allergies Allergy/AdvReac Type Severity Reaction Status Date / Time gabapentin AdvReac Edema Verified 01/06/22 18:58 - Social History Does the pt smoke?: No Smoking Status: Never smoker Does the pt drink ETOH?: Yes Does the pt have substance abuse?: No - Immunizations Immunizations are current?: Yes - POLST Patient has POLST: No PD ED PE NORMAL - Vitals Vital signs reviewed: Yes - General General: Alert and oriented X 3, No acute distress - HEENT HEENT: Atraumatic, PERRL, Moist mucous membranes, Pharynx benign - Neck Neck: Supple, no meningeal sign - Cardiac Cardiac: RRR, Strong equal pulses - Respiratory Respiratory: No respiratory distress, Clear bilaterally - Abdomen Abdomen: Soft, Non tender, Non distended - Back Back: No CVA TTP, No spinal TTP - Derm Derm: Warm and dry - Extremities Extremities: No edema - Neuro Neuro: Alert and oriented X 3 - Psych Psych: Normal mood, Normal affect Results - Vitals Vitals: Vital Signs - 24 hr 01/06/22 01/06/22 18:55 21:05 Temperature 36.9 C Heart Rate 104 H 91 Respiratory 20 18 Rate Blood Pressure 127/74 114/72 O2 Saturation 98 97 Oxygen O2 Source Room air - Labs Labs: Laboratory Tests 01/06/22 01/06/22 01/06/22 19:44 19:44 20:18 WBC 7.7 RBC 4.60 Hgb 12.3 Hct 39.5 MCV 85.9 MCH 26.7 L MCHC 31.1 L RDW 14.2 Plt Count 275 MPV 11.4 H Neut # (Auto) 5.8 Lymph # (Auto) 1.3 L [place] # (Auto) 0.5 Eos # (Auto) 0.1 Baso # (Auto) 0.0 Absolute Nucleated RBC 0.00 Nucleated RBC % 0.0 Sodium 138 Potassium 3.9 Chloride 104 Carbon Dioxide 23 Anion Gap 11.0 BUN 10 Creatinine 0.7 Estimated GFR (MDRD) 103 Glucose 116 H Calcium 9.4 Urine Color YELLOW Urine Clarity SL. CLOUDY Urine pH 6.5 Ur Specific [place] 1.025 Urine Protein TRACE Urine Glucose (UA) NEGATIVE Urine Ketones NEGATIVE Urine Occult Blood NEGATIVE Urine Nitrite NEGATIVE Urine Bilirubin NEGATIVE Urine Urobilinogen 0.2 (NORMAL) Ur Leukocyte Esterase SMALL H Urine RBC 0-5 Urine WBC 4-5 Ur Squamous Epith Cells MANY Squamous H Amorphous Sediment Few Urine Bacteria Few Ur Microscopic Review INDICATED Urine Culture Comments NOT INDICATED Urine HCG, Qual NEGATIVE PD MEDICAL DECISION MAKING - ED course Complexity details: reviewed results, re-evaluated patient, considered differential, d/w patient, d/w family ED course: Patient is a 26-year-old female that has had apparently 2 prior seizures. She did clear to her normal baseline. She has had a head CT, brain MRI and EEG that were all normal. She has seen neurology. They did recommend starting Lamictal, 25 mg p.o. daily. They recommended increasing by 50 mg every 2 weeks. She was breast-feeding at that time so declined this. She would like to start the Lamictal today. Therefore we will prescribe this for home. Counseled not to drive, avoid pools, showers, swimming etc. Patient is asymptomatic here. No significant lab abnormalities. Patient counseled regarding signs and symptoms for which I believe and urgent re-evaluation would be necessary. Patient with good understanding of and agreement to plan and is comfortable going home at this time This document was made in part using voice recognition software. While efforts are made to proofread this document, sound alike and grammatical errors may occur. Patient was able to bring up her prior neurology visit notes on her phone which were reviewed in the emergency department to confirm the normal EEG, MRI and the plan for Lamictal. Departure - Departure Disposition: Home, Self Care Clinical Impression: Seizure-like activity Condition: Good Instructions: ED Seizure Recurrent Follow-Up: Stacey Zhu MD [Primary Care Provider] - Within 1 week Prescriptions: lamoTRIgine [LaMICtal] 25 mg PO DAILY #30 tablet Comments: We will start you on Lamictal as outlined previously by neurology. Please follow-up with your primary care provider for further care. Return if you worsen. Do not drive until cleared by your doctor. You should also avoid baths, swimming pools, swimming in lakes and oceans. Your prescription was sent to [facility] in [place]. Discharge Date/Time: 01/06/22 21:06
[2022-01-06 19:51] LABS: BASOPHILS % (AUTO) 0.1 %; EOSINOPHILS # (AUTO) 0.1 10^3/uL (0.0-0.7); HCT - HEMATOCRIT 39.5 % (37.0-47.0); HGB - HEMOGLOBIN 12.3 g/dL (12.0-16.0); LYMPHOCYTES # (AUTO) 1.3 10^3/uL (1.5-3.5); LYMPHOCYTES % (AUTO) 16.9 %; MEAN CORPUSCULAR HEMOGLOBIN 26.7 pg (27.0-31.0); MEAN CORPUSCULAR HGB CONC 31.1 g/dL (32.0-36.0); MEAN CORPUSCULAR VOLUME 85.9 fL (81.0-99.0); MEAN PLATELET VOLUME 11.4 fL (7.9-10.8); MONOCYTES # (AUTO) 0.5 10^3/uL (0.0-1.0); NEUTROPHILS # (AUTO) 5.8 10^3/uL (1.5-6.6); NEUTROPHILS % (AUTO) 75.6 %; PLT - PLATELET COUNT 275 10^3/uL (130-450); RED CELL DISTRIBUTION WIDTH 14.2 % (12.0-15.0); WHITE BLOOD COUNT 7.7 x10^3/uL (4.8-10.8)
[2022-01-06 20:02] LABS: CALCIUM 9.4 mg/dL (8.5-10.3); CREATININE 0.7 mg/dL (0.4-1.0); POTASSIUM 3.9 mmol/L (3.5-5.0)
[2022-01-06 20:27] LABS: BILIRUBIN,URINE NEGATIVE (NEGATIVE); CLARITY,URINE SL. CLOUDY (CLEAR); GLUCOSE, URINE (UA) NEGATIVE (NEGATIVE); KETONES,URINE (UA) NEGATIVE (NEGATIVE); LEUKOCYTE ESTERASE, URINE SMALL (NEGATIVE); NITRITE,URINE NEGATIVE (NEGATIVE); OCCULT BLOOD,URINE NEGATIVE (NEGATIVE); PH,URINE 6.5 PH (5.0-7.5); PROTEIN,URINE TRACE mg/dL (NEGATIVE); UROBILINOGEN,URINE 0.2 (NORMAL) E.U./dL (NORMAL)
[2022-01-06 20:28] LABS: HCG UR QUAL NEGATIVE
[2022-01-06 20:31] LABS: RBC,URINE 0-5 /HPF (0-5)
[2022-01-06 20:32] LABS: AMORPHOUS SEDIMENT,UR Few /LPF; BACTERIA,URINE Few /HPF (None Seen); SQUAMOUS EPITHELIAL CELL,UR MANY Squamous (<= Few)
[2022-01-06] MEDS ORDERED: lamoTRIgine 25 MG TABLET PO STA (20:48)
[2022-01-06 21:06] VITALS: BP 114/72
== END 2022-01-06 21:06 | disposition home or self-care (01) ==
LOC: EDUNIT# → EDBD → ED 18:41
DX: R56.9 Unspecified convulsions (principal)
CPT/HCPCS: 36415; 80048; 81001; 81025; 85025; 99283; 99284; A9270; 81003; 87086

== ENCOUNTER 2023-01-30 09:01 | Emergency (ER) | payer MEDICAID ==
[2023-01-30 09:18] VITALS: BP 130/81; O2SAT 97
--- NOTE | 2023-01-30 09:44 | XRAY Report ---
PROCEDURE: Knee 4 View RT INDICATIONS: Trauma TECHNIQUE: 4 views of the knee(s) were acquired. COMPARISON: None. FINDINGS: Bones: No fractures or dislocations. No suspicious bony lesions. Soft tissues: No knee joint effusion. No suspicious soft tissue calcifications or masses. IMPRESSION: No acute fracture. No osseous lesion. If symptoms and/or clinical suspicion for pathology continue, f urther assessment with repeat plain films, or advanced imaging (e.g., CT, MRI, or bone scan) is recom mended for further assessment. Reviewed by: Andrea Nichols MD on 01/30/2023 9:43 AM PST Approved by: Andrea Nichols MD on 01/30/2023 9:43 AM [facility] Station ID: [id number]
--- NOTE | 2023-01-30 09:51 | ED Physician Documentation ---
PD HPI LOWER EXT INJURY - Stated complaint Stated Complaint: RT KNEE INJ - Chief complaint Chief Complaint: Trauma Ext - History obtained from History obtained from: Patient - Additional information Additional information: Patient is a 27-year-old female presenting for evaluation of right knee pain. Patient states she slipped and fell on water on Sunday and landed on her knees. She states that she has bruises to both knees but that the left knee is not causing her any pain. She reports pain with ambulation to the right knee. She has been trying to use ice without any significant improvement. Denies prior injuries that she is aware of. Denies hitting her head or having LOC. Review of Systems Cardiac: denies: Chest pain / pressure GI: denies: Abdominal Pain Musculoskeletal: reports: Extremity pain Neurologic: denies: Head injury PD PAST MEDICAL HISTORY - Past Medical History Past Medical History: Yes Cardiovascular: None Respiratory: None, Other Neuro: Seizure disorder Endocrine/Autoimmune: None GI: None : None HEENT: None Psych: Depression Musculoskeletal: Other Derm: None - Past Surgical History Past Surgical History: Yes HEENT: Tonsil/Adenoidectomy - Present Medications Home Medications: Ambulatory Orders Medication Instructions Recorded Confirmed FLUoxetine [PROzac] 40 mg ORAL DAILY 09/10/17 Levetiracetam [Keppra] 500 mg PO BID 01/30/23 01/30/23 - Allergies Allergies/Adverse Reactions: Allergies Allergy/AdvReac Type Severity Reaction Status Date / Time gabapentin AdvReac Edema Verified 01/30/23 09:18 - Social History Does the pt smoke?: No Smoking Status: Never smoker Does the pt drink ETOH?: No Does the pt have substance abuse?: No Substance Use and Type: Marijuana - Immunizations Immunizations are current?: Yes - POLST Patient has POLST: No PD ED PE NORMAL - General General: Alert and oriented X 3, No acute distress, Well developed/nourished - HEENT HEENT: Atraumatic - Cardiac Cardiac: Strong equal pulses - Respiratory Respiratory: No respiratory distress - Extremities Extremities: Other (Bruising to bilateral knees, tenderness to right knee but good range of motion and able to flex and extend fully with no laxity on varus or valgus stress or with anterior posterior stress; Normal range of motion at right hip and right ankle; No tenderness to left knee) Results - Vitals Vitals: Vital Signs - 24 hr 01/30/23 09:15 Temperature 36.1 C L Heart Rate 70 Respiratory 16 Rate Blood Pressure 130/81 H O2 Saturation 97 Oxygen O2 Source Room air PD Medical Decision Making - ED course Complexity details: reviewed results, d/w patient ED course: Patient is a 27-year-old female presenting for evaluation of right knee injury from a few days ago. Neurovascularly intact. Has some bruising to the knee but otherwise no significant deformity. An x-ray was obtained which I reviewed I see no fracture or dislocation. Patient was given a knee immobilizer and crutches. Counseled on continued supportive care, need for close follow-up as well as concerning symptoms to return for. Departure - Departure Disposition: Home, Self Care Clinical Impression: Right knee injury Condition: Stable Instructions: ED Knee Pain UKO Comments: There was an irregularity I noted on your x-rays but it does not appear to be an acute fracture. It does have smoother edges so could be related to an older injury. At this time the radiologist also does not see signs of a recent fracture. I am recommending to use the knee immobilizer and crutches along with ice, elevation, anti-inflammatory such as ibuprofen or acetaminophen. I would recommend close follow-up with your primary care provider if your symptoms or not improving over the course of the next week. IMPRESSION: No acute fracture. No osseous lesion. If symptoms and/or clinical suspicion for pathology continue, further assessment with repeat plain films, or advanced imaging (e.g., CT, MRI, or bone scan) is recommended for further assessment. Forms: PCP List Discharge Date/Time: 01/30/23 10:21
== END 2023-01-30 10:21 | disposition home or self-care (01) ==
LOC: ED 09:01
DX: S89.91XA Unspecified injury of right lower leg, initial encounter (principal); W01.0XXA Fall on same level from slipping, tripping and stumbling without subsequent striking against object, initial encounter
CPT/HCPCS: 99283

== ENCOUNTER 2023-10-09 09:26 | Emergency (ER) | payer MEDICAID ==
--- NOTE | 2023-10-09 09:46 | ED Physician Documentation ---
PD HPI SEIZURE - Stated complaint Stated Complaint: SEIZURES, RT LEG PX - Chief complaint Chief Complaint: Neuro - History obtained from History obtained from: Patient - History of Present Illness Witnessed: Witnessed (she has seizure history since childhood. Had not had one for about 1 1/2 years. Had 2 today, self limited. Has headache now. Also knee pain. Has been taking AEDs. Had run out of her fluoxetine and not taken for a week. Has refill in pharmacy today, as it took the week to get refill approved.) Number of seizures: Multiple (2 today), Lasted - seconds Description of seizure activity: Generalized Injury during seizure: Other (right knee injury). No: Head injury (does not believe she struck head but is having headache, which is unusal for her post- ictal.) Associated symptoms: Headache. No: Chest pain, Dyspnea, Nausea / vomiting History of seizures: Known seizure disorder Contributing factors: Changed meds (not a change in AEDs but had been of her fluoxetine for a week awaiting refill approval/pharmacy fill.). No: Off meds, Low blood sugar, EtOH withdrawal (has had 3-4 "wine cooler" type drinks daily regularly and none for past week, but no withdrawal symptoms.), Fever, Sleep deprivation Review of Systems Constitutional: denies: Fever, Chills Nose: denies: Rhinorrhea / runny nose, Congestion Throat: denies: Sore throat Respiratory: denies: Cough GI: denies: Vomiting, Diarrhea PD PAST MEDICAL HISTORY - Past Medical History Past Medical History: Yes Cardiovascular: None Respiratory: Asthma, Other Neuro: Seizure disorder Endocrine/Autoimmune: None GI: None POWERTRAIN ENGINEER: None : None HEENT: None Psych: Depression, Bipolar disorder Musculoskeletal: Other Derm: None - Past Surgical History Past Surgical History: Yes Ortho: ACL reconstruction HEENT: Tonsil/Adenoidectomy - Present Medications Home Medications: Ambulatory Orders Medication Instructions Recorded Confirmed FLUoxetine [PROzac] 40 mg ORAL DAILY 09/10/17 10/09/23 Levetiracetam [Keppra] 500 mg PO BID 01/30/23 10/09/23 - Allergies Allergies/Adverse Reactions: Allergies Allergy/AdvReac Type Severity Reaction Status Date / Time citalopram AdvReac Edema Verified 10/09/23 09:31 gabapentin AdvReac Edema Verified 10/09/23 09:31 - Social History Does the pt smoke?: No Smoking Status: Never smoker Does the pt drink ETOH?: Yes Does the pt have substance abuse?: Yes Substance Use and Type: Marijuana - Immunizations Immunizations are current?: Yes - POLST Patient has POLST: No PD ED PE NORMAL - Vitals Vital signs reviewed: Yes - General General: Alert and oriented X 3, Well developed/nourished, Other (appears uncomfortable due to headache. Without trouble talking, focal deficits.) - HEENT HEENT: Atraumatic - Neck Neck: Supple, no meningeal sign, No adenopathy - Cardiac Cardiac: RRR, No murmur - Respiratory Respiratory: Clear bilaterally - Abdomen Abdomen: Soft, Non tender - Derm Derm: Normal color, Warm and dry - Extremities Extremities: Other (right knee with tenderness medially. No gross laxity nor pain with cruciate testing. No laxity with collateral testing but somepain wit valgus stress. No effusion. ) - Neuro Neuro: Alert and oriented X 3, No motor deficit, No sensory deficit, Normal speech Results - Vitals Vitals: Vital Signs - 24 hr 10/09/23 10/09/23 10/09/23 09:31 10:35 12:11 Temperature 36.5 C Heart Rate 100 79 89 Respiratory 16 15 26 H Rate Blood Pressure 122/80 109/87 H 120/75 O2 Saturation 99 98 100 Oxygen O2 Source Room air - Labs Labs: Laboratory Tests 10/09/23 10/09/23 10/09/23 10:22 10:22 10:22 WBC 7.8 RBC 4.57 Hgb 13.4 Hct 41.6 MCV 91.0 MCH 29.3 MCHC 32.2 RDW 12.3 Plt Count 227 MPV 10.8 Neut # (Auto) 6.3 Lymph # (Auto) 1.1 L [place] # (Auto) 0.4 Eos # (Auto) 0.1 Baso # (Auto) 0.0 Absolute Nucleated RBC 0.00 Nucleated RBC % 0.0 Sodium 138 Potassium 3.7 Chloride 103 Carbon Dioxide 27 Anion Gap 8.0 BUN 9 Creatinine 0.5 L Estimated GFR (MDRD) 149 Glucose 106 H Calcium 9.3 Magnesium 1.6 L Total Bilirubin 1.1 H AST 39 ALT 35 Alkaline Phosphatase 96 Total Protein 7.3 Albumin 4.2 Globulin 3.1 Albumin/Globulin Ratio 1.4 Lipase 16 Serum HCG, Qual NEGATIVE - Rads (name of study) head CT Relevant Findings:: Prelim report reviewed, EMP independent interpretation of test (no ICH nor acute process) right knee Relevant Findings:: Prelim report reviewed (prior ACL repiar anchors in place. No acute fracture nor effusion), EMP independent interpretation of test PD Medical Decision Making - ED course Complexity details: reviewed results (checked basic labs and knee xray, as well as head CT (has MATTSON and not a common part of her seizures in the past). Given meds for nausea and MATTSON, as well as IV fluids. Feeling improved MATTSON. ), re- evaluated patient (doing okay here without further seizures. Given extra Keppra 500 mg IV. ), considered differential (seizure history with seizure x 2 today, last one about 1 1/2 yerars ago. No change IN AED meds. Off fluoxetine for a week awaiting refill approval. SSRI discontinued for the week could relate to the seizure, so provoked rather than random. 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 Having been off of that for a week does have some effect on the hormone levels in the brain and could lower the seizure threshold. Therefore the seizures you had today may have been partly provoked by that as opposed to just being "bad luck". Check with your primary care and see if that allows for a difference in the driving regulations and how long to not be driving. Otherwise at this point your CT scan is normal. It is not too uncommon to get headaches after seizures and I would presume for you to continue with some ibuprofen or naproxen and add Tylenol 4 times a day over the next couple of days to help. The anti-inflammatory and Tylenol should help with the knee as well. The x-ray appears normal but you can still pull or strain on some of the ligaments in the prior ACL repair. On exam it does not feel loose and I do not think it retore it or other ligaments. I think this should get better over the next few days to week. You could resume your postop brace for a week or so just to help support. I would suggest increasing your Keppra from 500 mg twice a day to a total of 1500 mg daily which can be 500 mg in the morning and thousand at night. It does not have to be evenly divided such as 750 twice a day although that would be another option for how to take it. Follow-up with your primary care. Forms: PCP List Discharge Date/Time: 10/09/23 12:21
[2023-10-09 10:29] LABS: BASOPHILS % (AUTO) 0.1 %; EOSINOPHILS # (AUTO) 0.1 10^3/uL (0.0-0.7); HCT - HEMATOCRIT 41.6 % (37.0-47.0); HGB - HEMOGLOBIN 13.4 g/dL (12.0-16.0); LYMPHOCYTES # (AUTO) 1.1 10^3/uL (1.5-3.5); LYMPHOCYTES % (AUTO) 13.7 %; MEAN CORPUSCULAR HEMOGLOBIN 29.3 pg (27.0-31.0); MEAN CORPUSCULAR HGB CONC 32.2 g/dL (32.0-36.0); MEAN PLATELET VOLUME 10.8 fL (7.9-10.8); MONOCYTES # (AUTO) 0.4 10^3/uL (0.0-1.0); MONOCYTES % (AUTO) 4.6 %; NEUTROPHILS # (AUTO) 6.3 10^3/uL (1.5-6.6); NEUTROPHILS % (AUTO) 80.3 %; PLT - PLATELET COUNT 227 10^3/uL (130-450); RED BLOOD COUNT 4.57 10^6/uL (4.20-5.40); RED CELL DISTRIBUTION WIDTH 12.3 % (12.0-15.0); WHITE BLOOD COUNT 7.8 x10^3/uL (4.8-10.8)
[2023-10-09] MEDS: KETOROLAC 15 MG/ML VIAL IVP STA (10:39)
--- NOTE | 2023-10-09 10:39 | CT Report ---
PROCEDURE: Head WO INDICATIONS: MATTSON following sz, not common symptoms TECHNIQUE: Noncontrast 4.5 mm thick angled axial sections acquired from the foramen magnum to the vertex. For r adiation dose reduction, the following was used: automated exposure control, adjustment of mA and/or kV according to patient size. COMPARISON: CT head dated 02/17/2021. FINDINGS: Image quality: Excellent. CSF spaces: Basal cisterns are patent. No extra-axial fluid collections. Ventricles are normal in size and shape. Brain: No midline shift. No intracranial masses or hemorrhage. Alvarez-white matter interface is norm al. Skull and face: Calvarium and visualized facial bones are intact, without suspicious lesions. Sinuses: Visualized sinuses and mastoids are clear. IMPRESSION: No acute intracranial pathology. Reviewed by: Nam Eddy MD on 10/09/2023 10:38 AM PDT Approved by: Nam Eddy MD on 10/09/2023 10:38 AM PDT Station ID: [id number]
[2023-10-09] MEDS: SODIUM CHLORIDE 0.9% 1,000 ML IV STA (10:40)
[2023-10-09] MEDS: HYDROmorphone 0.5 MG/0.5 ML SYRINGE IVP STA (10:40)
[2023-10-09] MEDS: ONDANSETRON 4 MG/2 ML VIAL IVP STA (10:40)
[2023-10-09 10:42] LABS: ALBUMIN 4.2 g/dL (3.2-5.5); ALBUMIN/GLOBULIN RATIO 1.4 (1.0-2.2); BILIRUBIN,TOTAL 1.1 mg/dL (0.2-1.0); CALCIUM 9.3 mg/dL (8.5-10.3); CREATININE 0.5 mg/dL (0.6-1.3); MAGNESIUM 1.6 mg/dL (1.7-2.3); POTASSIUM 3.7 mmol/L (3.5-4.5); TOTAL PROTEIN 7.3 g/dL (6.4-8.9)
[2023-10-09 10:49] LABS: HCG,QUALITATIVE BLOOD NEGATIVE
--- NOTE | 2023-10-09 10:53 | XRAY Report ---
PROCEDURE: Knee 3V RT INDICATIONS: seizure with knee pain TECHNIQUE: 3 views of the knee(s) were acquired. COMPARISON: 01/30/2023 FINDINGS: Bones: ACL replacement sequelae. No acute displaced fracture or dislocation. Similar fragmentation of the tibial tuberosity. Soft tissues: There is mild stranding at Hoffa's fat pad and a trace joint effusion. Slight lateral p atellar tilt. IMPRESSION: Postsurgical changes. Possible Hoffa's fat pad edema and trace effusion. Slight lateral patellar til t. If there is high concern for further derangement, consider MRI evaluation. Reviewed by: Kendrick Mott MD on 10/09/2023 10:52 AM PDT Approved by: Kendrick Mott MD on 10/09/2023 10:52 AM PDT Station ID: [id number]
[2023-10-09] MEDS: levETIRAcetam 500 MG/5 ML VIAL IVP STA (11:54)
[2023-10-09] MEDS: ACETAMINOPHEN 500 MG TABLET PO STA (11:57)
[2023-10-09 12:12] VITALS: BP 120/75; O2SAT 100
== END 2023-10-09 12:21 | disposition home or self-care (01) ==
LOC: ED 09:26
DX: G40.909 Epilepsy, unspecified, not intractable, without status epilepticus (principal); R11.0 Nausea; G44.89 Other headache syndrome; T43.225A Adverse effect of selective serotonin reuptake inhibitors, initial encounter; S83.91XA Sprain of unspecified site of right knee, initial encounter; T43.226A Underdosing of selective serotonin reuptake inhibitors, initial encounter; Z91.138 Patient's unintentional underdosing of medication regimen for other reason
CPT/HCPCS: 36415; 70450; 73562; 80053; 80177; 83690; 83735; 84703; 85025; 96374; 96375; 99284; 99285; A9270; J1170